=== PATIENT | female | born 1970 | race Caucasian/White ===

== ENCOUNTER 2020-10-26 11:16 | Outpatient (REF) | payer MEDICARE, MEDICAID, SELFPAY ==
--- NOTE | 2020-10-26 12:31 | MHC.AU.P13 ---
Adult Audiological Evaluation Date of Visit: 10/26/20 Supply Cataloguer Used: Not Applicable Reason for Appointment: Audiologic re-evaluation due to question of change in hearing ability. Previous Hearing Test Results: 08/26/2019 [facility] Right ear - Mild dropping to severe sensorineural hearing loss with 84% speech understanding at 80 dB HL. Left ear - Profound sensorineural hearing loss through all frequencies with no speech discrimination ability. Ear History: Ear Infections in Childhood: Both Ears Medical History: Medical History: High Blood Pressure Medical History: Cerebral Palsy Medication List: Not available for review Hearing Instrument History- Right Ear: Grain Elevator Worker: Phonak Model: CROS B 13 Serial Number: [id number] Battery Size: 13 Repair Warranty: 05/04/2021 Loss and Damage Warranty: 05/04/2021 Dispensed By: [facility] Date of Fittin02/12/2018 Hearing Instrument History- Left Ear: Grain Elevator Worker: Phonak Model: Anson B 50-MARINE Serial Number: [id number] Battery Size: 13 Warranty: 05/04/2021 Loss and Damage Warranty: 05/04/2021 Dispensed By: [facility] Date of Fittin02/12/2018 Otoscopy: Right Ear: Unremarkable Left Ear: Unremarkable Tympanometry: Tympanometry performed due to: To assess integrity of the middle ear system Right Ear: Normal Middle Ear System (Type A) Left Ear: Normal Middle Ear System (Type A) Hearing Evaluation: Transducer(s) Used: Insert Earphones Bone Conduction Method: Conventional Audiometry Stimuli Used: Pure Tones Right Ear: Description of Hearing: Did not test due to long-standing history of profound sensorineural hearing loss with no speech discrimination ability. Left Ear: Description of Hearing: Moderate sloping to severe sensorineural hearing loss Speech Recognition Threshold (SRT): Method Used: Monitored Live Voice Stimuli Used: Spondee Words Right Ear: Did Not Test Left Ear: 50 dB HL Word Discrimination: Method: Monitored Live Voice Word Lists Used: NU-6 Right Ear: Did Not Test Left Ear: 76% at 80 dB HL 88% at 85 dB HL Most Comfortable Level (MCL): Right Ear: Did Not Test Left Ear: 80 dB HL Comparison: Compared to the most recent evaluation: Hearing is overall stable. Word discrimination scores have decreased in the left ear. Recommendations: Audiological re-evaluation in one year. Discussed with Josefina if she would like to have the overall volume of the left aid increased since test results indicate improved speech understanding when the presentation was increased. Since her daily environment tends to be loud, she would prefer the hearing aid stay at the current level. Josefina is advised to schedule an appointment if she would like adjustments at a later time. Diagnosis: Primary Diagnosis: H90.3 Bilateral Sensorineural Hearing Loss Services Performed: Comprehensive Audiological Evaluation (CPT 05495) Tympanometry (CPT 88178) Signature: Provider: Ericka Juarez, CCC-A
== END 2020-10-26 11:17 | disposition home or self-care (01) ==
LOC: HO.SH 11:16
PROVIDERS: Visit Provider Family Medicine
DX: H90.3 Sensorineural hearing loss, bilateral (principal)
CPT/HCPCS: 92557; 92567

== ENCOUNTER 2020-12-27 10:59 | Outpatient (REF) | payer MEDICARE, MEDICAID, SELFPAY ==
--- NOTE | 2020-12-27 11:06 | MHC.AU.P13 ---
Hearing Instrument Problem Date of Visit: 12/27/20 Right Ear: Recreation Officer: Phonak Model: CROS B 13 Serial Number: [id number] Repair Warranty: 05/04/2021 Loss and Damage Warranty: 05/04/2021 Battery Size: 13 Color: [employer] Instructor: #1 CROS Wire Type of Mold: CROS Tip #[id number] Warranty Type of Wax Guard: None Left Ear: Recreation Officer: Phonak Model: Anson B 50-MARINE Serial Number: [id number] RepairWarranty: 05/04/2021 Loss and Damage Warranty: 05/04/2021 Battery Size: 13 Color: [employer] Instructor: #1 Standard Type of Mold: Slim Tip #[id number] Warranty Type of Wax Guard: CeruStop Follow-Up Summary: Right CROS dropped off - CROS tip wire broke of mold - sent to [employer] for in warranty repair. Recommendations: Recommendations: Patient will be contacted when materials have arrived. Signature: Provider: AMANDA Valerio-
== END 2020-12-27 11:00 | disposition home or self-care (01) ==
LOC: HO.HAP 10:59
PROVIDERS: Visit Provider Family Medicine
DX: Z13.89 Encounter for screening for other disorder (principal)

== ENCOUNTER 2021-01-06 10:46 | Outpatient (REF) | payer MEDICARE, MEDICAID, SELFPAY | END 2021-01-06 10:47 | disposition home or self-care (01) | LOC: HO.HAP 10:46 | PROVIDERS: Visit Provider Family Medicine | DX: Z13.89 Encounter for screening for other disorder (principal) ==

== ENCOUNTER 2021-04-05 10:57 | Outpatient (REF) | payer MEDICARE, MEDICAID, SELFPAY | END 2021-04-05 10:58 | disposition home or self-care (01) | LOC: HO.HAP 10:57 | PROVIDERS: Visit Provider Family Medicine | DX: Z13.89 Encounter for screening for other disorder (principal) ==

== ENCOUNTER 2021-04-17 12:53 | Outpatient (REF) | payer MEDICARE, MEDICAID, SELFPAY ==
--- NOTE | 2021-04-17 13:36 | MHC.AU.HFU ---
Hearing Instrument Follow-Up- Binaural Date of Visit: 04/17/21 Right Ear: Fire Control Officer: Phonak Model: CROS B 13 Serial Number: [id number] Repair Warranty: 05/04/2021 Loss and Damage Warranty: 05/04/2021 Battery Size: 13 Color: [place] Attendant: #1 CROS Wire Type of Mold: CROS Tip #[id number] Warranty Type of Wax Guard: None Dispensed By: [facility] Date of Fittin02/12/2018 Left Ear: Fire Control Officer: Phonak Model: Anson B 50-MARINE Serial Number: [id number] Repair Warranty: 05/04/2021 Loss and Damage Warranty: 05/04/2021 Battery Size: 13 Color: [place] Attendant: #1 Standard Type of Mold: Slim Tip #[id number] Warranty Type of Wax Guard: CeruStop Dispensed By: [facility] Date of Fittin02/12/2018 Follow-Up Summary: Right CROS repair paired with left aid. Recommendations: Recommendations: Hearing instrument follow-up or maintenance as needed. Patient will call if problems persist. Diagnosis Code(s): Primary Diagnosis: H90.3 Bilateral Sensorineural Hearing Loss Services Performed: CANAS Non-Quantity Charges: HANC: NonBillable Event Signature: Provider: Ericka Juarez, NEEL-A
== END 2021-04-17 12:54 | disposition home or self-care (01) ==
LOC: HO.HAP 12:53
PROVIDERS: Visit Provider Family Medicine
DX: Z13.89 Encounter for screening for other disorder (principal)

== ENCOUNTER 2021-11-29 14:22 | Outpatient (REF) | payer MEDICARE, MEDICAID, SELFPAY ==
--- NOTE | 2021-12-08 09:21 | MHC.AU.AHA ---
Adult Audiological Evaluation Date of Visit: 11/29/21 Freight Separator Used: Not Applicable Reason for Appointment: Audiologic re-evaluation to determine possible change in hearing ability. Josefina has a history of moderate to severe hearing loss in the left ear and profound hearing loss in the right ear with no speech discrimination ability. She reports recent surgery of the left side sciatic nerve with the right side surgery took place in May 2021. No other health changes are reported. Previous Hearing Test Results: 10/26/2020 [facility] Left ear - Moderate sloping to severe sensorineural hearing loss with 76% speech understanding at 80 dB HL and 88% at 85 dB HL. Right ear - Not tested due to history of no functional hearing ability. Ear History: Ear Infections in Childhood: Both Ears Medical History: Medical History: High Blood Pressure, Cerebral Palsy Medication List: Not available Hearing Instrument History- Right Ear: Fast Food Crew Lead: Phonak Model: CROS B 13 Serial Number: [id number] Battery Size: 13 Repair Warranty: 05/04/2021 Dispensed By: [facility] Date of Fittin02/12/2018 Hearing Instrument History- Left Ear: Fast Food Crew Lead: Phonak Model: Anson B 50-MARINE Serial Number: [id number] Battery Size: 13 Warranty: 05/04/2021 Dispensed By: [facility] Date of Fittin02/12/2018 Otoscopy: Right Ear: Unremarkable Left Ear: Unremarkable Tympanometry: Not performed at today's visit as all previous tympanometry results have indicated normal middle ear function bilaterally. Hearing Evaluation: Transducer(s) Used: Insert Earphones Bone Conduction Method: Conventional Audiometry Stimuli Used: Pure Tones Right Ear: Description of Hearing: Did not test due to long-standing history of profound sensorineural hearing loss with no speech discrimination ability. Left Ear: Description of Hearing: Moderate sloping to severe sensorineural hearing loss Speech Recognition Threshold (SRT): Method Used: Monitored Live Voice Stimuli Used: Spondee Words Right Ear: Could Not Test Left Ear: 45 dB HL Word Discrimination: Method: Recorded Lists Word Lists Used: NU-6 Right Ear: Could Not Test Left Ear: 88% at 85 dB HL Comparison: Compared to the most recent evaluation: Hearing is stable. Recommendations: Audiological re-evaluation in one year. Will send a reminder card. Hearing aid maintenance performed today. Diagnosis: Primary Diagnosis: H90.3 Bilateral Sensorineural Hearing Loss Services Performed: Comprehensive Audiological Evaluation (CPT 20984) Signature: Provider: Ericka Juarez, NEEL-A
== END 2021-11-29 14:23 | disposition home or self-care (01) ==
LOC: HO.SH 14:22
PROVIDERS: Visit Provider Family Medicine
DX: Z01.118 Encounter for examination of ears and hearing with other abnormal findings (principal); H90.3 Sensorineural hearing loss, bilateral
CPT/HCPCS: 92557